=== PATIENT | female | born 1985 | race Caucasian/White ===

== ENCOUNTER 2016-12-09 02:58 | Inpatient (IN) | payer OTHER ==
--- NOTE | ~2016-12-09 | HP ---
Unit #: [id number] #: [id number] Patient: MYRTLE MEDRANO [id number] [place] [address] [id number] MR#: [id number] NAME: MYRTLE MEDRANO ROOM: P122 Age: 31 Sex: F Admission Date: 12/09/2016 : 1985 Attending Physician: Saúl Goldman M.D. Admitting Physician: Saúl Goldman M.D. Primary Care Physician: Primary Care Physician No HISTORY AND PHYSICAL HISTORY OF PRESENT ILLNESS Myrtle is a 31 year old admitted to [address] [place] [address] with depression and after a perceived suicide attempt with an overdose of amitriptyline and Vistaril. She was medically cleared in local emergency room after being charcoaled and then transported to [facility] for psychiatric care. She also has a history of illicit drug use and UDS was positive for meth and cocaine. PAST MEDICAL HISTORY 1. History of poly-illicit substance abuse. 2. Asthma. 3. Obesity. PAST SURGICAL HISTORY 1. x2. 2. Hysterectomy. 3. Cholecystectomy. ALLERGIES No known drug allergies. SOCIAL HISTORY Smokes 1 pack per day. Denies alcohol. Admits to a history of illicit substance abuse. FAMILY HISTORY Medically noncontributory. REVIEW OF SYSTEMS CONSTITUTIONAL: No fever or chills. HEENT: Denies any sore throat, ear pain or runny nose. CARDIOVASCULAR: Denies chest pain, irregular heart rhythm or palpitations. CHEST: Denies shortness of breath or cough. No hemoptysis. GASTROINTESTINAL: Denies nausea, vomiting, diarrhea or chronic constipation. ENDOCRINE: Denies history of increased thirst or urination. No recent significant weight loss or gain. GENITOURINARY: Denies dysuria, frequency, or hematuria. SKIN: Denies any rashes. HEMATOLOGIC: Denies history of increased bleeding or bruising. MUSCULOSKELETAL: Denies any hot, swollen joints. No generalized muscle pain. NEUROLOGIC: Denies problems with vision or speech. No frequent, severe headaches. No numbness, tingling or weakness in any extremities. Denies Unit #: [id number] #: [id number] Patient: MYRTLE MEDRANO loss of bladder or bowel control. CURRENT MEDICATIONS 1. Amitriptyline 10 mg q.h.s. 2. Vistaril 25 mg b.i.d. 3. Qvar b.i.d. 4. Topamax 50 mg daily. 5. Milk of Magnesia p.r.n. 6. Maalox p.r.n. 7. Tylenol p.r.n. PHYSICAL EXAMINATION GENERAL: Alert, well-nourished, in no apparent distress. VITAL SIGNS: Blood pressure 110/72, heart rate 90, respirations 16, temperature 98.6. WEIGHT: Not recorded. SKIN: Warm and dry without rash or lesion. HEENT: Normocephalic. TMs not viewed. Oral and nasal passages clear. Conjunctivae clear. PERRLA. EOMs intact. NECK: Supple without lymphadenopathy or thyromegaly. HEART: Regular rate and rhythm without murmur. LUNGS: Clear. ABDOMEN: Soft, nontender. : Not done. EXTREMITIES: No evidence of cyanosis, clubbing or edema. Moves all without focal deficit. NEUROLOGICAL: Grossly within normal limits. Cranial Nerves: II: Visual kim are intact. III, IV AND : Extraocular movements are intact. Pupils are equal, round and reactive to light. V: Facial sensation is grossly normal. VII: Facial movements and expression are normal. VIII: Auditory acuity grossly intact. IX, X: Uvula is midline. Phonation is normal. XI: Patient shrugs shoulders and turns head normally. XII: Tongue protrudes in the midline. Sensory and Motor Function: Sensory and motor sensation is grossly normal. Motor: moves all extremities well. Coordination: Gait is normal. Deep Tendon Reflexes: Intact. IMPRESSION Psychiatric admission. RECOMMENDATIONS PSYCHIATRIC: Per psychiatrist. MEDICAL: See no contraindications to participate in facility's activities. MEDICAL PROGNOSIS Good. MEDICAL CONDITION Stable. Dictated by... Corinna Sharp P.A.-C. for Donna Ruvalcaba M.D. Unit #: [id number] #: [id number] Patient: MYRTLE MEDRANO/deandra TD: 12/09/2016 21:48 JOB #: [id number] HISTORY AND PHYSICAL Page 1 of 1 X Corinna Sharp X HISTORY AND PHYSICAL
--- NOTE | ~2016-12-09 | PA ---
Unit #: [id number] #: [id number] Patient: MYRTLE MEDRANO [id number] [place] [address] [id number] I MR#: [id number] NAME: MYRTLE MEDRANO ROOM: [facility] Age: 31 Sex: F Admission Date: 12/09/2016 : 1985 Date of Assessment: 12/09/2016 Attending Physician: Saúl Goldman M.D. Admitting Physician: Saúl Goldman M.D. Primary Care Physician: Primary Care Physician No PSYCHIATRIC ASSESSMENT IDENTIFYING INFORMATION The patient is a 31-year-old white female admitted in transfer from [facility] after an overdose of Vistaril and amitriptyline. CHIEF COMPLAINT None given. INFORMANT(S) Patient, reliability is good. HISTORY OF PRESENT ILLNESS The patient is a 31-year-old white female who was admitted to the [address] [place] [address] Unit in transfer from [facility]. The patient had been taken there by EMS after she had ingested four Vistaril tablets and 5 amitriptyline tablets. The patient was also apparently found in possession of what was thought to be suicide notes. It was felt the patient reports that these were notes written to her children over a year ago. The patient called her mother immediately after her ingestion. The patient did report to the ER staff that she had wanted to harm herself secondary to her recent breakup with her fiance of 2 years. However, the patient this morning denies any suicidal ideation in her ingestion saying that she "just wanted to get some sleep." The patient currently denies suicidal or homicidal ideation. She has seen a therapist in the past. Her current psychotropic medications include only very little dose Elavil which she takes for headache. PAST PSYCHIATRIC HISTORY The patient does report a history of previous counseling. PAST MEDICAL HISTORY The patient has a history of hysterectomy and anal fissures, hypertension, polycystic ovarian syndrome, irritable bowel syndrome, and hypertension. MEDICATIONS Topamax, Elavil, Flovent, Vistaril, Ventolin, and albuterol. ALLERGIES Latex. FAMILY HISTORY Noncontributory. SOCIAL HISTORY Unit #: [id number] #: [id number] Patient: MYRTLE MEDRANO The patient completed the ninth grade. She is presently unemployed and does not work outside the home. She is the mother of 2 children neither of whom she has custody. She is a smoker and reports occasional use of cannabis. MENTAL STATUS EXAMINATION Examination at this time reveals the patient to be an obese white female appearing her stated age. She is in no apparent physical distress at the time of examination. She is awake, alert, and oriented in all spheres. Her mood is mildly dysphoric, her affect congruent. Speech is generally well coherent. No gross deficits in memory or cognition noted. Intelligence is judged to be in the average range based on fund of knowledge. The patient is cooperative throughout the interview. She is currently denying suicidal or homicidal ideation or psychotic features. Judgment and insight appear to be reasonably intact. ASSETS AND LIABILITIES The patient's assets: Motivation for change. Supportive family. Liabilities: Recent relationship breakup. DIAGNOSTIC IMPRESSION 1. Dysthymic disorder. 2. Adjustment disorder with depressed mood. 3. Migraine headache. 4. Morbid obesity. 5. Irritable bowel syndrome. 6. Polycystic ovarian syndrome. 7. Status post ingestion of Vistaril and amitriptyline without sequelae. TREATMENT PLAN The patient remains hospitalized for safety and stabilization. We will watch for at least one further day, and I will attempt to obtain collateral history from the patient's mother tomorrow. I am prepared to watch the patient for as long as 72 hours not including the weekend based on her history, but the patient's mother does in fact seem to be supportive and is okay with the patient's discharge. Discharge could take place as early as tomorrow since the patient did in fact contact her shortly after her ingestion indicating that she did not wish to . ESTIMATED LENGTH OF STAY 2 to 3 days. Dictated by... Saúl Goldman M.D. Claudia TD: 12/10/2016 09:17 JOB #: [id number] Unit #: [id number] #: [id number] Patient: MYRTLE MEDRANO PSYCHIATRIC ASSESSMENT Page 1 of 1 X Saúl Goldman MD PSYCHIATRIC ASSESSMENT
--- NOTE | ~2016-12-09 | DS ---
Unit #: [id number] #: [id number] Patient: MYRTLE MEDRANO [id number] [facility] [address] [place] [address] [id number] I MR#: [id number] NAME: MYRTLE MEDRANO ROOM: P122 Age: 31 Sex: F Admission Date: 12/09/2016 : 1985 Discharge Date: 12/10/2016 Attending Physician: Saúl Goldman M.D. Primary Care Physician: Primary Care Physician No DISCHARGE SUMMARY REASON FOR ADMISSION The patient is a 31-year-old white female, admitted following an ingestion of small amounts of Elavil and Vistaril. HOSPITAL COURSE The patient was admitted to the [address] [place] [address] unit and placed on suicide precautions. She denied suicidal intent in her ingestion and reported that shortly after taking the very small number of pills which she had taken, she had called her mother for assistance and had sought medical assistance almost immediately. The patient had apparently made a suicidal threat in the emergency room and much was made of some notes the patient has written to her children. However, the date on these notes was 12/03/2016, thus leaving this physician to believe they had been written well before the ingestion and more to the point, did not necessarily represent suicide note. The patient consistently denied suicidal ideation. This physician spoke with the patient's mother on 12/10/2016. The patient's mother assured this physician that the patient would be staying with her for several weeks upon discharge from the hospital , so the patient's discharge was not contraindicated. Discharge was ordered. FINAL DIAGNOSES Adjustment disorder, depressed mood, obesity, migraine headache, asthma. DISCHARGE MEDICATIONS The patient is discharged on the following medications: Proventil HFA 2 puffs q.4 hours p.r.n. shortness of air, Vistaril 25 mg b.i.d. p.r.n. anxiety, QVAR 2 puffs b.i.d. for asthma, Elavil 10 mg at bedtime for insomnia, and Topamax 50 mg once daily for migraine headache. DISCHARGE INSTRUCTIONS No dietary or physical restrictions were placed upon the patient at the time of discharge. FOLLOWUP Followup will take place through the auspices of community mental health resources in the [facility] [place]. PROGNOSIS The patient's prognosis is considered fair. Dictated by... Unit #: [id number] #: [id number] Patient: MYRTLE MEDRANO M.D. CB/augustin TD: 12/10/2016 15:34 JOB #: [id number] DISCHARGE SUMMARY Page 1 of 1 X Saúl Goldman MD X DISCHARGE SUMMARY
== END 2016-12-10 12:00 | disposition home or self-care (01) | DRG 881 ==
LOC: P1S 02:58
DX: F34.1 Dysthymic disorder (principal); E66.01 Morbid (severe) obesity due to excess calories; F43.21 Adjustment disorder with depressed mood; G43.909 Migraine, unspecified, not intractable, without status migrainosus; K58.9 Irritable bowel syndrome, unspecified; E28.2 Polycystic ovarian syndrome; J45.909 Unspecified asthma, uncomplicated